=== PATIENT | male | born 1960 | race Caucasian/White ===

== ENCOUNTER 2017-09-08 16:21 | Emergency (ER) | payer BC, MEDICAID, OTHER ==
--- NOTE | 2017-09-08 17:00 | EDM.PDOC ---
ED HPI GENERAL MEDICAL PROBLEM - General Chief Complaint: Back Pain or Injury Stated Complaint: MACIEJ TRAMMELL IN BACK, [id number] Time Seen by Provider: 09/08/17 16:50 Source of Information: Reports: Patient History Limitations: Reports: No Limitations - History of Present Illness INITIAL COMMENTS - FREE TEXT/NARRATIVE: This 56 yo male patient reports to the ED with back pain. The patient reports he fell on the ice about 11 days ago and has been in constant pain since the fall. The patient reports he "broke his back" 2 times in the past with similar symptoms. The patient reports that he does not have a primary care provider and does not want to get one. The patient requested medications to "get him through " the initial pain. The patient reports that he has been taking ibuprofen with little to no symptom relief. The patient did have a brace on, which the patient reports helps stabilize his back when he works. The patient reports he climbs up and down all the time. Onset Date: 08/28/17 Duration: Constant Location: Reports: Back (upper back) Quality: Reports: Ache, Dull Severity: Moderate Improves with: Reports: Rest Worsens with: Reports: Movement Treatments REHABILITATOR: Reports: NSAIDS Middle Back Pain Score (Numeric/FACES): 8 - Related Data Allergies Allergy/AdvReac Type Severity Reaction Status Date / Time codeine Allergy Unknown Swollen Verified 09/08/17 16:27 Tongue Home Meds: Home Meds Ibuprofen 800 mg PO ASDIRECTED PRN 09/11/14 [History] Past Medical History HEENT History: Reports: None Cardiovascular History: Reports: None Respiratory History: Reports: None Gastrointestinal History: Reports: None Genitourinary History: Reports: None Musculoskeletal History: Reports: Fracture Neurological History: Reports: Concussion Psychiatric History: Reports: None Endocrine/Metabolic History: Reports: None Hematologic History: Reports: None Immunologic History: Reports: None Oncologic (Cancer) History: Reports: None Dermatologic History: Reports: None - Infectious Disease History Infectious Disease History: Reports: Chicken Pox - Past Surgical History HEENT Surgical History: Reports: None Cardiovascular Surgical History: Reports: None Respiratory Surgical History: Reports: None GI Surgical History: Reports: Appendectomy, Hernia, Inguinal Male Surgical History: Reports: None Neurological Surgical History: Reports: None Dermatological Surgical History: Reports: None Social & Family History - Tobacco Use Smoking Status *Q: Never Smoker Second Hand Smoke Exposure: Yes - Caffeine Use Caffeine Use: Reports: Coffee, Energy Drinks, Soda, Tea - Alcohol Use Days Per Week of Alcohol Use: 0 - Recreational Drug Use Recreational Drug Use: No - Living Situation & Occupation Living situation: Reports: Occupation: Employed ED ROS GENERAL - Review of Systems Review Of Systems: ROS reveals no pertinent complaints other than HPI. ED EXAM, UPPER BACK/NECK PAIN - Physical Exam Exam: See Below Exam Limited By: No Limitations General Appearance: Alert, WD/WN, Moderate Distress, Thin Eye Exam: Bilateral Eye: EOMI, Normal Fundi, PERRL Ears Exam: Normal External Exam, Normal Canal, Hearing Grossly Normal, Normal TMs Nose Exam: Normal Inspection, Normal Mucousa, No Blood Throat/Mouth Exam: Normal Inspection, Normal Lips, Normal Teeth, Normal Gums, Normal Oropharynx, Normal Voice, No Airway Compromise Head Exam: Atraumatic, Normocephalic Neck Exam: Non-Tender, Full Range of Motion, Normal Alignment, Normal Inspection Nexus Criteria: No: Posterior, Midline Cervical Tenderness, Evidence of Intoxication, Altered Level of Consciousness, Focal Neurological Deficit, Painful Distraction Injuries Cardiovascular/Respiratory: Regular Rate, Rhythm, No M/R/G, Normal Peripheral Pulses, No JVD, Normal Breath Sounds, No Respiratory Distress GI/Abdominal: Normal Bowel Sounds, Soft, Non-Tender, No Organomegaly, No Distention, No Abnormal Bruit, No Mass (Male) Exam: Deferred Rectal (Males) Exam: Deferred Back Exam: Paraspinal Tenderness (mid thoracic spine radiating down his back), Vertebral Tenderness (mid thoracic spine ) Extremities: Normal Inspection, Normal Range of Motion, Non-Tender, No Pedal Edema, Normal Capillary Refill 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, No Motor/Sensory Deficits, Alert, Normal Mood/Affect, Oriented x 3 Psychiatric: Normal Affect, Normal Mood Skin Exam: Normal Color, Warm/Dry Lymphatic: No Adenopathy Course - Vital Signs Last Recorded V/S: Last Vital Signs Temp 36.7 C 09/08/17 16:31 Pulse 95 09/08/17 16:31 Resp 18 09/08/17 16:31 BP 124/71 09/08/17 16:31 Pulse Ox 98 09/08/17 16:31 - Orders/Labs/Meds Meds: Medications Discontinued Medications Generic Name Dose Route Start Last Admin Trade Name Freq PRN Reason Stop Dose Admin Ketorolac Tromethamine 10 mg 09/08/17 17:24 Toradol PO 09/08/17 17:25 ONETIME ONE Departure - Departure Time of Disposition: 17:26 Disposition: Home, Self-Care 01 Condition: Fair Clinical Impression: Back pain Qualifiers: Back pain location: thoracic back pain Chronicity: acute Back pain laterality: bilateral Qualified Code(s): M54.6 - Pain in thoracic spine Non-traumatic compression fracture of T8 thoracic vertebra Qualifiers: Encounter type: initial encounter Qualified Code(s): M48.54XA - Collapsed vertebra, not elsewhere classified, thoracic region, initial encounter for fracture - Discharge Information Instructions: Back Pain, Adult, [id number] Forms: ED Department Discharge Care Plan Goals: The patient was advised of the examination and x-ray results during the visit. The patient was given an oral dose of Toradol while in the ED. The patient was discharged with a script for Toradol (10 mg) #20 to take 1 by mouth every 6 hours, Flexeril (10 mg) #10 to take 1 by mouth at bedtime as needed and Biggs ( 10/325) #6 to take 1 by mouth at bedtime as needed for breakthrough pain. If the patient has any additional symptoms or concerns, the patient should follow- up with a primary care facility or return to the emergency department.
--- NOTE | 2017-09-08 17:13 | CR ---
Clinical history: 56-year-old male back pain (fell 11 days ago). Interpretation: Markedly abnormal. 1. Severe compression (insufficiency) fracture T8 vertebral body with associated hypertrophic margina l buttressing spurs and kyphotic deformity unchanged when compared directly to lateral images 17 Dece mber 2013. 2. *New insufficiency fracture T11 vertebral body since August 2014 comparison film. Para 3. No other fractures of the dorsal spine or spondylolisthesis. 4. No paraspinal soft tissue mass or hematoma. Normal cardiac silhouette and mediastinal width. 5. Several old healed fracture deformities posterior lateral ribs on the right.
--- NOTE | 2017-09-08 17:17 | CR ---
Clinical history: 56-year-old male injured fall 11 days ago complaining now of back pain (apparent "n ew T11 compression fracture" since lateral T-spine film 11 September 2014). Interpretation: AP lateral lumbosacral spine exam confirms approximate 50% anterior compression of th e T11 vertebral body upper margin of the film. Subtle decreased height and increased density of the L1 vertebral body may represent another compress ion fracture. There is mild osteopenia but no sign of pathologic skeletal lesion, other lumbar fracture or spondylo listhesis. Some marginal spondylosis present all levels of the lower thoracic and lumbar spine. Symmetric spacing normal-appearing SI joints. CONCLUSION: Insufficiency compression fractures T11 (50%) and L1 (less than 5%) vertebral bodies. See above.
[2017-09-08] MEDS ORDERED: Ketorolac 10 MG Tab PO ONE (17:24)
== END 2017-09-08 17:33 | disposition home or self-care (01) ==
LOC: DL.ED 16:21
DX: M48.54XA Collapsed vertebra, not elsewhere classified, thoracic region, initial encounter for fracture (principal); Z88.5 Allergy status to narcotic agent
CPT/HCPCS: 72070; 72100; 99284; A9270